=== PATIENT | female | born 1990 | race Caucasian/White ===

== ENCOUNTER 2020-01-04 08:43 | Emergency (ER) | payer BC ==
[~2020-01-04] VITALS: Ht 170.2 cm; Wt 63.5 kg
[2020-01-04] MEDS ORDERED: ADVIL200 MG PO (09:03)
[2020-01-04] MEDS ORDERED: KEFLEX500 MG PO (10:42)
[2020-01-04] MEDS ORDERED: FLAGYL500 MG PO (10:42)
== END 2020-01-04 10:57 | disposition home or self-care (01) ==
LOC: ED 08:43
DX: S81.012A Laceration without foreign body, left knee, initial encounter (principal); F17.200 Nicotine dependence, unspecified, uncomplicated; Z79.899 Other long term (current) drug therapy; W01.0XXA Fall on same level from slipping, tripping and stumbling without subsequent striking against object, initial encounter
CPT/HCPCS: 81001; 84703; 87210; 87491; 87591; 90471; 90715; 99283-25